=== PATIENT | male | born 1945 | race Caucasian/White ===

== ENCOUNTER 2019-01-16 20:52 | Inpatient (IN) | payer OTHER, MEDICAID ==
[~2019-01-16] VITALS: Ht 180.3 cm; Wt 74.4 kg
[2019-01-16 21:00] VITALS: Ht 180.3 cm; Wt 74.4 kg
--- NOTE | 2019-01-16 21:20 | NUR ---
PT BIBA TO BED 12 VIA [facility]. PER MEDIC PT WAS FOUND BY ON THE FLOOR OR HIS HOUSE AND FRIENDS CALLED 911. PT AAOX4, WITH INTERMITTEN CONFUSION. PT APPEARS DIRTY, WITH NO SHOES OR SHIRT. PT DENIES BEING HOMELESS AND REPORTS LIVING AT THE HOUSE FROM WHERE HE WAS PICKED UP BY AMBULENCE. 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 PT REPORTS HE HAS NOT HAD HIS METHADONE IN 2 DAYS. PT REPORTS ABD PAIN RATED 10/10. PT FOLLOWS APPEARS ANXIOUS AND RESTLESS AT THIS.
--- NOTE | 2019-01-16 21:35 | NUR ---
PT AMBULATED TO RESTROOM WITH STEADY GAIT.
[2019-01-16 22:12] LABS: ALKALINE PHOSPHATASE 112 U/L (46-116); ALT/SGPT 28 U/L (16-63); AMYLASE 40 U/L (25-115); AST/SGOT 29 U/L (15-37); BILIRUBIN TOTAL 0.29 mg/dL (0.20-1.00); CALCIUM 8.7 mg/dL (8.5-10.1); CARBON DIOXIDE 20.2 mmol/L (21-32); CHLORIDE SERUM 83 mmol/L (98-107); CREATININE SERUM 0.8 mg/dL (0.7-1.3); GLUCOSE SERUM 80 mg/dL (74-106); LIPASE 67 IU/L (73-393); POTASSIUM SERUM 4.1 mmol/L (3.5-5.1); TOTAL PROTEIN, SERUM 6.9 g/dL (6.4-8.2)
[2019-01-16 22:13] LABS: ALBUMIN 2.7 g/dL (3.4-5.0)
[2019-01-16 22:14] LABS: SODIUM SERUM 115 mmol/L (136-145)
--- NOTE | 2019-01-16 22:22 | NUR ---
PATIENT REQUESTING FOOD. PROVIDED PATIENT WITH SANDWICH OKAY PER DR THORNTON. PRIMARY RN MADE AWARE.
--- NOTE | 2019-01-16 22:40 | NUR ---
PT ATTEMPTED TO WALK OUT OF ED, PT STATES "IM GETTING OUT OF HERE, IF YOU GUYS ARENT GIVING ME MY METHADONE." PT ENCOURAGED TO GO BACK TO ROOM AND REFUSED. DR THORNTON AT SIDE EXPLAINED TO PT NEED FOR NS BOLUS FOR CRITICALLY LOW NA. PT ASSISTED X 4 TO BED 11. HELENA THORNTON ORDERED HALDOL AND BENEDRYL IM AND 4 POINT RESTRAINTS.
--- NOTE | 2019-01-16 22:58 | NUR ---
RECIEVED REPORT FROM YAYA GUZMÁN. PT LAYING IN POSITION OF COMFORT. PT CONFUSED, FOLLOWING COMMANDS. SONYA GUZMÁN AT BEDSIDE FOR IV START
--- NOTE | 2019-01-16 23:07 | NUR ---
ATTEMPTED IV ACCESS X3 TO RIGHT UPPER EXTREMITY, UNSUCCESSFUL, PT TOLERATED.
[2019-01-16 23:30] LABS: BASOPHIL % 0.6 % (0-2); PLATELET COUNT 412 x10^3mcL (130-400); RED CELL DISTRIBUTION WIDTH 15.1 % (11.5-14.5)
--- NOTE | 2019-01-17 00:06 | NUR ---
X-RAY AT BEDSIDE
--- NOTE | 2019-01-17 00:19 | NUR ---
PT WILL NOT RESPOND TO QUESTIONS TO OBTAIN MED REC OR BELONGINGS LIST. PT STATED IN TRIAGE THAT HE TOOK METHADONE, BUT NO OTHER MEDS.
--- NOTE | 2019-01-17 00:46 | NUR ---
PT FOUND URINATING IN SINK. IV PULLED OUT FROM BEING STRETCHED. PT PUT BACK IN BED AND GIVEN A URINAL.
--- NOTE | 2019-01-17 01:00 | NUR ---
WINDY RN AND ROBYN RN AT BEDSIDE TO ATTEMPT IV PLACEMENT
--- NOTE | 2019-01-17 01:30 | NUR ---
MEDICATION ADMINISTERED PER MD ORDER. 500ML OF 3% NS STARTED AT 50ML/HR. MED AND RATE DOUBLE-CHECKED BY MARY GUZMÁN
--- NOTE | 2019-01-17 01:31 | NUR ---
PT LAYING IN BED RESTING. PT AROUSED, TRACKS W/ EYES. LAYING IN POSITION OF COMFORT. 2 BED RAILS UP, BED IN LOW AND LOCKED POSITION. VSS, RESPS E/U, NAD NOTED. MARY AT BEDSIDE TO ATTEMPT 2ND IV.
--- NOTE | 2019-01-17 01:57 | NUR ---
REPORT GIVEN TO RITA GUZMÁN
--- NOTE | 2019-01-17 02:30 | NUR ---
RECIEVED PT FROM ED ON RICKI ACCOMPANIED BY NURSE, PT SLEEPING DIFFICULT TO AROUSE BUT AROUSABLE TO TACTILE STIMULI UNABLE TO OBTAIN PT HISTORY DO TO ALOC, PT HAS IVS TO THE RIGHT HAND AND LFA INFUSING 3% SALINE AND THIAMINE SOLUTION, PT NOT REPORTING ANY PAIN, PT STABLE, BED ALARM ON, SAFETY PRECAUTIONS IN PLACE, WILL CONTINUE TO MONITOR
[2019-01-17 02:44] VITALS: BP 158/96
[2019-01-17 03:13] LABS: PHOSPHOROUS 3.4 mg/dL (2.5-4.9)
--- NOTE | 2019-01-17 03:35 | NUR ---
NO BANANNA BAG AVAILABLE, CALLED PHARM SAID THEY WOULD BRING IN 30 MIN
[2019-01-17 04:03] LABS: microscopic required? NO
[2019-01-17 04:16] LABS: UA SPECIFIC GRAVITY <=1.005 (1.005-1.035); urine erythrocyte NEGATIVE (NEGATIVE)
[2019-01-17 04:29] LABS: AMPHETAMINE QUAL UR NONE DETECTED (See below)
--- NOTE | 2019-01-17 04:57 | NUR ---
PT SLEEPING IN BED WITH NO ACUTE DISTRESS AT THIS TIME, PT AROUSABLE TO TACTILE STIMULI, BED ALARM ON, SAFETY PRECAUTIONS IN PLACE, WILL CONTINUE MONITOR
--- NOTE | 2019-01-17 05:23 | NUR ---
PT HAS BEEN SLEEPING AND ONLY AROUSABLE TO TACTILE STIMULI, WAS NOT ABLE TO GET PATIENT HISTORY DUR TO PTS ALOC, PT HAS HAD NO ACUTE DISTRESS NOTED SINCE ADMISSION, BED ALARM HAS REMAINED ON AND WIIL CONTINUE TO MONITOR AND ENDORSE CARE TO ONCOMING RN
[2019-01-17 05:32] VITALS: BP 149/85
[2019-01-17 06:23] LABS: BASOPHIL % 0.4 % (0-2); PLATELET COUNT 378 x10^3mcL (130-400)
[2019-01-17 06:29] LABS: CALCIUM 8.4 mg/dL (8.5-10.1); CARBON DIOXIDE 28.3 mmol/L (21-32); CHLORIDE SERUM 98 mmol/L (98-107); CREATININE SERUM 0.7 mg/dL (0.7-1.3); GLUCOSE SERUM 84 mg/dL (74-106); POTASSIUM SERUM 4.6 mmol/L (3.5-5.1); SODIUM SERUM 132 mmol/L (136-145)
[2019-01-17 06:35] LABS: T3 TOTAL 0.95 ng/mL
[2019-01-17 06:36] LABS: RED CELL DISTRIBUTION WIDTH 15.3 % (11.5-14.5)
[2019-01-17 06:57] LABS: FREE T4 0.99 ng/dL (0.76-1.46)
--- NOTE | 2019-01-17 07:40 | NUR ---
PT IS AAOX2-[address], GROGGY, SLOW TO SPEAK. FOLLOWS COMMANDS. VERBALLY RESPONSIVE. TELE [address] READING NSR WITH PVCS. NO C/O CHEST PAIN, PRESSURE OR PALPITATIONS. LUNG SOUNDS CONGESTED BILATERALLY WITH NON PRODUCTIVE COUGH NOTED. ON 02 N/C AT 3LPM. ABDOMEN SOFT, NONTENDER, NONDISTENDED. BOWEL SOUNDS ACTIVE. DENIES N/V. SKIN IN ESAU RED WITH DRYNESS TO BLE. PT HAS SCATTERED SCABS ON RLE, SAMANTHA. NO S/S OF INFECTION NOTED. PT HAS SCAB TO L MEDIAL FOOT, SAMANTHA, NO S/S OF INFECTION NOTED. DENIES PAIN AT THIS TIME. FALL PROTOCOL IN PLACE. CALL LIGHT WITHIN REACH. BED ALARM ON.
--- NOTE | 2019-01-17 09:19 | NUR ---
DUE MEDS GIVEN. FLUIDS ENCOURAGED. PT ORIENTED TO CALL LIGHT. RESP EVEN WITH NON PRODUCTIVE COUGH. DENIES PAIN. CALL LIGHT WITHIN REACH.
--- NOTE | 2019-01-17 09:39 | NUR ---
ATIVAN 2MG GIVEN FOR AGITATION. PT'S B/P 186/78 (108), HR 94. REPORTED TO DR. MCCARTHY. NO NEW ORDERS AT THIS TIME. CALL LIGHT WITHIN REACH.
[2019-01-17 10:12] VITALS: BP 186/78
--- NOTE | 2019-01-17 11:00 | NUR ---
PT IS SITTING UP AT BEDSIDE EATTING BREAKFAST. PT IS SWAYING SITTING AT EDGE OF BED. PT NOTED WITH FINE TREMORS TO R HAND/ARM. PT ASSISTED BACK INTO BED. B/P 144/80, (101), POST ATIVAN 2MG. CALL LIGHT WITHIN REACH. WILL CONTINUE TO MONITOR.
[2019-01-17 13:37] VITALS: BP 165/77
--- NOTE | 2019-01-17 14:25 | NUR ---
ATIVAN 2 MG IVP GIVEN. PT IS ANXIOUS. B/ (108), HR 77. PT DENIES H/A OR DIZZINESS. CALL LIGHT WITHIN REACH.
[2019-01-17 16:21] LABS: CALCIUM 8.6 mg/dL (8.5-10.1); CARBON DIOXIDE 26.6 mmol/L (21-32); CHLORIDE SERUM 102 mmol/L (98-107); CREATININE SERUM 0.8 mg/dL (0.7-1.3); GLUCOSE SERUM 110 mg/dL (74-106); POTASSIUM SERUM 4.3 mmol/L (3.5-5.1); SODIUM SERUM 135 mmol/L (136-145)
[2019-01-17 16:43] VITALS: BP 180/81
--- NOTE | 2019-01-17 17:04 | NUR ---
REPORTED TO DR. MCCARTHY THAT PT HAS CONGESTION AND CHRONIC NONPRODUCTIVE COUGH. COULD PT HAVE ORDER FOR SEIZURE PRECAUTIONS. DR. MCCARTHY STATED YES PLEASE ORDER SEIZURE PRECAUTIONS, I WILL COME AND TAKE A LOOK AT THE PT. ORDERS NOTED PT MADE AWARE.
--- NOTE | 2019-01-17 17:11 | NUR ---
ATIVAN 2 MG IVP GIVEN. PT IS ANXIOUS. B/ (108), HR 77. PT DENIES H/A OR DIZZINESS. CALL LIGHT WITHIN REACH.
--- NOTE | 2019-01-17 18:38 | NUR ---
HYDRALZINE 10MG IVP GIVEN FOR B/P 175/77 (111). LASIX 20 MG IVP GIVEN FOR CHEST CONGESTION. RESP EVEN, SHALLOW. NO RESP DISTRESS NOTED. CALL LIGHT WITHIN REACH.
--- NOTE | 2019-01-17 18:41 | NUR ---
PT IS AAOX2 TO PERSON AND PLACE. DROWSY, FOLLOWS SOME COMMANDS. SEIZURE PRECAUTIONS IMPLEMENTED. TELE [address] READING NSR WITH PVCS. PT ON O2 N/C AT 3LPM. IV CATH TO RH N/S LOCKED. SITE WNL. IV CATH TO LFA WITH FLUIDS RUNNING. SITE WNL. SO S/S OF INFECTION NOTED. PT DENIES PAIN AT THIS TIME. WILL ENDORSE ALL CARE TO NOC RN.
[2019-01-17 19:20] VITALS: BP 114/50
--- NOTE | 2019-01-17 19:25 | NUR ---
RECEIVED PT VERY DROWSY WITH ATTEMPTS OF GETTING OOB AT THIS TIME.REDIRECTED BACK IN BED AND REPOSITIONED.CHANGED ALL LINENS AND GOWNS.BP 114/50 MMHG,HR 98.PADDED RAILS IN PLACED.ON SEIZURE PRECAUTION.BEDALARM ON AT ALL TIMES.WILL CONTINUE TO MONITOR.
--- NOTE | 2019-01-18 04:35 | NUR ---
PT WITH ON AND OFF SLEEPING PATTERN,MORE AWAKE AND ABLE TO MAKE NEEDS KNOWN.ON LIBRIUM PO Q8H.ATIVAN 2 MG IVP X3 GIVEN FOR WITHDRAWAL SYMPTOMS.PERIODS OF RESTLESSNESS WANTING TO GO OUTSIDE HOSPITAL.REDIRECTED BEHAVIOR.BEDALARM ON AT ALL TIMES.PADDED RAILS IN PLACED.SEIZURE PRECAUTIONS OBSERVED.ALL NEEDS MET.WILL CONTINUE TO MONITOR.
[2019-01-18 05:51] VITALS: BP 148/88
[2019-01-18 06:27] LABS: BASOPHIL % 0.3 % (0-2); PLATELET COUNT 307 x10^3mcL (130-400)
[2019-01-18 06:42] LABS: ALKALINE PHOSPHATASE 94 U/L (46-116); ALT/SGPT 33 U/L (16-63); AST/SGOT 21 U/L (15-37); BILIRUBIN TOTAL 0.3 mg/dL (0.20-1.00); CALCIUM 8.6 mg/dL (8.5-10.1); CARBON DIOXIDE 26.6 mmol/L (21-32); CHLORIDE SERUM 100 mmol/L (98-107); CREATININE SERUM 0.8 mg/dL (0.7-1.3); GLUCOSE SERUM 98 mg/dL (74-106); MAGNESIUM 2.1 mg/dL (1.8-2.4); PHOSPHOROUS 3.7 mg/dL (2.5-4.9); SODIUM SERUM 133 mmol/L (136-145)
[2019-01-18 06:51] LABS: ALBUMIN 2.3 g/dL (3.4-5.0); TOTAL PROTEIN, SERUM 5.6 g/dL (6.4-8.2)
[2019-01-18 06:59] LABS: RED CELL DISTRIBUTION WIDTH 15.3 % (11.5-14.5)
--- NOTE | 2019-01-18 07:17 | NUR ---
RECEIVED PATIENT SLEEPY, AROUSABLE, DROWSY NOTED. 3LNC NOTED. TELE #30 NOTED. IV TO RH INTACT AND SL NOTED, LFA INTACT AND INFUSING WELL. BED ALARM ACTIVATED, CALL LIGHT WITHIN REACH.
--- NOTE | 2019-01-18 08:17 | NUR ---
PATIENT GOT UP PER OBSTETRICIAN GYNECOLOGIST AT BEDSIDE REPORT, URINATING ON THE FLOOR AND PULL OUT IV TO LFA; NOTED SITE IS BLEEDING GAUZES APPLIED. PATIENT REMOVED GOWN AND TELE BOX; OBSTETRICIAN GYNECOLOGIST ASSISTING PATIENT WITH HIS GOWN AND TELE BOX PLACE BY RN; INSTRUCT PATIENT TO KEEP THE GOWN ON. ASSISTING UP TO CHAIR W/ UNBALANCE GAIT NOTED. OBSTETRICIAN GYNECOLOGIST CHANGE LINENS.
[2019-01-18 08:43] VITALS: BP 166/75
--- NOTE | 2019-01-18 08:55 | NUR ---
PATIENT REMAIN UP IN CHAIR, SPEAKING WITH SLURRED SPEECH. GAVE ALL PO MEDS PATIENT TOOK ALL WITHOUT DIFFICULTY. PATIENT ASKING NURSE FOR METHADONE INFORM PATIENT WILL ASK DOCTOR. NO ORDER AT THIS TIME. PER PATIENT TAKE METHADONE 90MG PO DAILY. CONT TO MONITOR.
--- NOTE | 2019-01-18 09:33 | NUR ---
PATIENT GOT OUT OFF BED WALKING IN HALLWAY TRY TO GET OUT, FOOD AND BEVERAGE COORDINATOR AND LICENSED PSYCHOLOGIST DIRECTOR TRY TO WALK PATIENT BACK TO BED. PATIENT WALK W/ UNBALANCE GAIT. ASSIST IN BED. ATIVAN 2MG IVP GIVEN TO RH IV PATENT. BED ALARM IN PLACE, SIDE RAILS UP. CONT TO MONITOR.
--- NOTE | 2019-01-18 10:27 | NUR ---
REPORT COMPUTER SCIENCE INSTRUCTOR FAHAD PATIENT TRY TO LEFT THE FLOOR, ATIVAN IS NOT EFFECTIVE. PATIENT STATE "I NEED MY METHADONE." PER FAHAD COMPUTER SCIENCE INSTRUCTOR WILL ORDER METHADONE FOR PATIENT. PATIENT IS SITTING UP IN CHAIR REFUSED TO GO TO BED. CALL LIGHT WITHIN REACH, TEACH IS NOT EFFECTIVE. INSTRUCT TO USE CALL LIGHT NO INDICATE OF LEARNING AT THIS TIME.
--- NOTE | 2019-01-18 10:55 | NUR ---
PER BUNNY CARMEN SPOKE TO FAHAD AMPHIBIOUS OPERATIONS OFFICER PATIENT'S REFUSED TO BE IN HIS ROOM, AMPHIBIOUS OPERATIONS OFFICER WILL ORDER HALDOL. HOUSE SUP AWARE PATIENT KEEP WANT TO LEAVE THE HOSPITAL, GAIT UNSTEADY AND UNSAFE TO LEAVE. WILL HAVE SITTER.
--- NOTE | 2019-01-18 11:09 | NUR ---
PATIENT AGITATED WHEN TRY TO GET PATIENT BACK TO BED BY TWO ENTERPRISE RESOURCE PLANNING CONSULTANT, HALDOL 5MG IM GIVEN TO LT ARM, ENTERPRISE RESOURCE PLANNING CONSULTANT AT BEDSIDE TO MONITOR PATIENT. PLACE TELE BOX #30 ON PATIENT. CALL LIGHT WITHIN REACH.
--- NOTE | 2019-01-18 12:10 | NUR ---
PATIENT GETTING MORE AGITATED AFTER HALDOL GIVEN AT 1103, PLACE PATIENT ON BILATERAL SOFT WRIST RESTRAINT, MORTGAGE CLOSING CLERK FAHAD WAS INFORM. ATIVAN 2MG IVP GIVEN TO RH IV PATENT. PATIENT STILL TRYING TO GET HIS RESTRAAINST OFF. SITTER AT BEDSIDE CONT TO MONITOR.
--- NOTE | 2019-01-18 14:16 | NUR ---
PHYSICAL THERAPY NOTE ATTEMPTED PHYSICAL THERAPY EVAL, PATIENT COULD NOT PARTICIPATE ON FUNCTIONAL MOBILITY, PATIENT IS ONCOOPERATIVE. TO BE ATTEMPTED NEXT SESSION.
--- NOTE | 2019-01-18 14:44 | NUR ---
MILK AND CREAM GRADER ASSISTING PATIENT WITH LUNCH AND PATIENT GET AGITATED, WANT TO REMOVED RESTRAINT AND GOT IRRITIATED, ATIVAN 2MG IVP GIVEN TO RH IV PATENT. INCONT OF URINE SKIP CARE WILL BE PROVIDED WHEN PATIENT REMAIN CALM. CONT TO MONITOR.
[2019-01-18 16:30] VITALS: BP 189/115
--- NOTE | 2019-01-18 17:17 | NUR ---
RESTART NEW IV TO #22G BY JIM RN, RH IV INFILTRATED PATIENT C/O PAINFUL WHEN FLUSH. REMOVED W/ CATHETER INTACT GAUZES APPLIED. BILAT SOFT REST RESTRAIN IN PLACE AND CIRCULATION WNL. SITTER REMAIN AT BEDSIDE. CALL LIGHT WITHIN REACH.
--- NOTE | 2019-01-18 18:56 | NUR ---
PATIENT SLEEPING AT THIS TIME, NO DISTRESS NOTED. SITTER REMAIN AT BEDSIDE. BILAT SOFT WRIST RESTRAINT IN PLACE AND SECURED. CALL LIGHT WITHIN REACH.
--- NOTE | 2019-01-18 19:30 | NUR ---
REC'D PT FROM DAY NURSE. PT RESTING IN BED. AAOX2-3. ORIENTED TO SELF, MONTH, AND CITY. DROWSY. REORIENTED TO YEAR AND PLACE. WHISPERED SPEECH. SLIGHTLY GARBLED BUT EASY TO UNDERSTANDING. SZ PREC IN PLACE. TELE 30, ST WITH PVCS. DENIES CP, DIZZINESS, OR PALPITATIONS. BREATHING EVEN/UNLABORED ON 3L NC, SPO2 98%. REDUCED O2 TO 1.5 L, SPO2 97%. NO EDEMA NOTED. ABD SOFT/ROUND. NO GRIMACE WITH PALPATION. VOIDING WITH INCONTINENCE. DRY ABRASIONS/SCABS TO RLE BUILDING MAINTENANCE SUPERINTENDENT. GEN WEAKNESS. KONRAD SOFT WRIST RESTRAINTS IN PLACE. PT ATTEMPTING TO GET OOB AND REMOVE IV. IV TO LH PATENT AND INFUSING, SITE WNL. CALL LIGHT WITHIN REACH, BED AT LOWEST POSITION, BED ALARM ON, SITTER AT BEDSIDE. WILL CONTINUE TO MONITOR.
[2019-01-18 21:21] VITALS: BP 174/94
--- NOTE | 2019-01-18 21:36 | NUR ---
BP 171/94, MAP 113, HR 91. HYDRALIZE IVP GIVEN.
--- NOTE | 2019-01-18 22:13 | NUR ---
PT CHANGED AND CLEANED. NONBLANCHABLE ERYTHEMA NOTED TO L BUTTOCKS, A LITTLE BIT ON COCCYX, AND R BUTTOCK. PICTURE OBTAINED. Z GUARD APPLIED. KONRAD SOFT WRIST RESTRAINTS IN PLACE. SITTER AT BEDSIDE. WILL CONTINUE TO MONITOR.
[2019-01-18 22:55] VITALS: BP 180/106
--- NOTE | 2019-01-18 23:03 | NUR ---
BP 180/106, MAP 130, HR 115. STILL ELEVATED S/P HYDRALIZINE IVP. SPOKE TO DR. SULLIVAN AND MADE AWARE. STATED WILL ORDER SOMETHING. PT RESTLESS AND TRYING TO GET OOB. KONRAD SOFT WRIST RESTRAINTS IN PLACE. KICKING. ATIVAN 2MG IVP GIVEN PER ORDER. SITTER AT BEDSIDE. WILL CONTINUE TO MONITOR.
[2019-01-19] VITALS (7 sets, daily range): BP systolic 107–182; BP diastolic 68–102
--- NOTE | 2019-01-19 00:34 | NUR ---
BP 194/105, MAP 154, HR 104 S/P LOPRESSOR 2.[address] SULLIVAN AND MADE AWARE.
--- NOTE | 2019-01-19 01:36 | NUR ---
BP 176/102, HR 94 S/P CLONIDINE 0.[address] PO[address] SPOKE TO DR. SULLIVAN AND MADE AWARE. STATED TO JUST MONITOR FOR NOW. NO CHANGES IN ORDERS. PT RESTING IN BED WITH EYES CLOSED. OCCASIONALLY RESTLESS. BREATHING EVEN/UNLABORED ON 1.5 L NC. KONRAD SOFT WRIST RESTRAINTS IN PLACE. SITTER AT BEDSIDE. WILL CONTINUE TO MONITOR.
--- NOTE | 2019-01-19 03:01 | NUR ---
PT RESTING IN BED WITH EYES CLOSED. APPEARS TO BE SLEEPING. NO SIGNS OF DISTRESS NOTED. BREATHING EVEN/UNLABORED ON 1.5L O2 VIA NC. KONRAD SOFT WRIST RESTRAINTS IN PLACE. CALL LIGHT WITHIN REACH, BED AT LOWEST POSITION, SITTER AT BEDSIDE. WILL CONTINUE TO MONITOR.
[2019-01-19 06:11] LABS: BASOPHIL % 0.2 % (0-2); PLATELET COUNT 321 x10^3mcL (130-400)
--- NOTE | 2019-01-19 06:19 | NUR ---
PT RESTING IN BED WITH EYES CLOSED. AROUSES SPONTANEOUSLY. SPEECH GARBLED BUT EASY TO UNDERSTANDING. DROWSY BUT RESTLESS AT TIMES AND KICKS. BP 138/91, HR 86. KONRAD SOFT WRIST RESTRAINTS IN PLACE. CALL LIGHT WITHIN REACH, BED AT LOWEST POSITON, SITTER AT BEDSIDE. WILL ENDORSE TO DAY NURSE.
[2019-01-19 06:42] LABS: CALCIUM 9.2 mg/dL (8.5-10.1); CARBON DIOXIDE 26.8 mmol/L (21-32); CHLORIDE SERUM 99 mmol/L (98-107); CREATININE SERUM 0.7 mg/dL (0.7-1.3); GLUCOSE SERUM 98 mg/dL (74-106); POTASSIUM SERUM 3.7 mmol/L (3.5-5.1); SODIUM SERUM 134 mmol/L (136-145)
[2019-01-19 06:45] LABS: RED CELL DISTRIBUTION WIDTH 15.4 % (11.5-14.5)
--- NOTE | 2019-01-19 08:00 | NUR ---
PATIENT RECEIVED WITH ONE TO ONE SITTER AT [facility] AND RESTRAINTS IN PLACE. PATIENT HAS BEEN ASKING IN A GARBLED SPEECH FOR METHODONE AND REPORTED THE PATIENT HAD NOT BEEN ON THIS MEDICATION FOR AT LEAST 4 YEARS, PATIENT HAS BEEN ANXIOUS AND ON LIBRIUM AND PATIENT HAS BEEN ON SEIZURE PRECAUTIONS FOR HYPONATREMIA AND THE NA 134 AT THIS TIME . PATIENT HAS BEEN NOTED TO HAVE LOW ALBUMIN WELL AND PATIENT HAS HX OF BEING HOMELESS AND FOUND ON THE GROUND . PATIEN THAS GENERAL WEAKNESS AND HAS BEEN NOTED TO PULL AT THE IV AND THE TELE MONITOR AND HAS AT TIME BEEN COMBATIVE PER REPORT. PATIENT HAS HX OF HEROIN USE ADN ETOH. NO KNOWN ALLERGIES AND PATIENT HAS BEEN NEGATIVE FOR HERION OR ANY OTHER DRUGS AND IS POSTIVE ON ADMISSION FOR ALCOHOL AND PLACED ON ETOH PROTOCAL INDICATED. PATIENT IS TO BE SEEN BY A PSYCH AND VITALS AT THIS TIME AT 97.0, 86, 18, 138/71, 96%.
--- NOTE | 2019-01-19 11:32 | NUR ---
CONTINUED WITH SITTER AT BEDSID ADN RESTRAINTS. PATIENT IS STILL ANXIOUS AND CONFUSED BUT CALMER WITH THE LIBRIUM GIVEN. WILL CONTNDUE TO MONITOR. NO SEZIURE OR DT NOTED.
--- NOTE | 2019-01-19 11:46 | NUR ---
SEEN BY INSPECTOR PLUMBING AND ADVISED STAFF AT BEDSIDE TO CALL AND LET STAFF KNOW IF ANY COMES TO SEE THE PATIEN TAS WE NEED SOME KIND OF CONTACT. PATIENT HAS SO FAR BEEN CONFUSED AND ONLY ORIENTED TO SELF. HE IS SLURRING HIS WORDS AND SEEMS NOT TO BE ORIENTED TO THE PRESENT.
--- NOTE | 2019-01-19 16:20 | NUR ---
PATIENT DOES NOT APPEAR IN ANY PAIN AT THIS TIME. IV INTACT AND PATIENT WITH SITTER AT BEDSIDE. RESTRAINTS TO BILATERAL WRISTS NOTED AND CIRCULATION CHECKED. WILL CONTINUE TO MONITOR AND NO SEIZURE ACTIVITY NOTED.
--- NOTE | 2019-01-19 18:50 | NUR ---
FORREST HAD A BREAK FROM THE RESTRAINTS AND HE IS FEEDING HIMSELF. ZENY LMONITOR FOR ANY AGITATION OR PULLING OF ANY MEDICAL DEVICES. AT THIS TIME HE IS COOPERATIVE.
--- NOTE | 2019-01-19 19:20 | NUR ---
RECEIVED PT IN BED AND APPEARS DROWSY. HE ANSWERS TO SIMPLE QUESTIONS W/ GARBLED SPEECH. NO C/O HEADACHE AND DIZZINESS. LUNG SOUNDS DIMINISHED. NO SOB NOTED. HE HAS NO C/O PAIN AT THIS TIME. W/ BILAT SOFT WRIST RESTRAINTS IN PLACE. WILL MAINTAIN GOOD CIRCULATION WHILE ON RESTRAINTS. W/ IVF NS AT 100 CC/HR VIA LT HAND. CALL LIGHT W/IN REACH.
--- NOTE | 2019-01-19 20:30 | NUR ---
STARTED NEW IV ON THE LTFA ( IV TO LT HAND WAS OUT). PT TOLERATED PROCEDURE WELL.
[2019-01-20] VITALS (7 sets, daily range): BP systolic 147–191; BP diastolic 85–108
--- NOTE | 2019-01-20 00:32 | NUR ---
PT TRYING TO REMOVE RESTRAINTS WANTS TO GET OOB REPEATEDLY. PT REORIENTED BUT UNSUCCESSFUL. ATIVAN 2 MG IV GIVEN TO HELP PT CALM DOWN.
--- NOTE | 2019-01-20 01:15 | NUR ---
PT STILL AWAKE BUT APPEARS MORE CALM AFTER ATIVAN WAS GIVEN.
--- NOTE | 2019-01-20 05:17 | NUR ---
PT AWAKE MOST OF THE NIGHT. HE REMAINS CONFUSED AND W/GARBLED SPEECH. HE WAS MEDICATED W/ ATIVAN X1FOR AGITATION. PT TRYING TO REMOVE RESTRAINTS AND TO GET OOB. PT REORIENTED REPEATEDLY. GOOD CIRCULATION MAINTAINED. PT HAD BM X1. HE HAD NO C/O PAIN. ALL NEEDS ATTENDED TO. SITTER AT BEDSIDE.
[2019-01-20 06:21] LABS: BASOPHIL % 0.2 % (0-2); PLATELET COUNT 285 x10^3mcL (130-400)
[2019-01-20 06:47] LABS: RED CELL DISTRIBUTION WIDTH 15.4 % (11.5-14.5)
[2019-01-20 06:55] LABS: CALCIUM 9.4 mg/dL (8.5-10.1); CARBON DIOXIDE 24.3 mmol/L (21-32); CHLORIDE SERUM 101 mmol/L (98-107); CREATININE SERUM 0.8 mg/dL (0.7-1.3); GLUCOSE SERUM 107 mg/dL (74-106); POTASSIUM SERUM 3.8 mmol/L (3.5-5.1); SODIUM SERUM 134 mmol/L (136-145)
--- NOTE | 2019-01-20 08:00 | NUR ---
PATIENT HAS BEEN SEEN BY THE [facility] AND CONTINUED ON RESTRAINT PROTOCAL DUE TO PULLING OUT OF IV AND HAS BEEN CONFUSED INTERMITTANTLY THOUGHOUT THE NIGHT. HE RECEIVED ATIVAN FOR HIS RESTLESSNESS AND AGITATION. PATIENT HAD NO SIGNS OF SEIZURE ACTIVITY AND ON PROTOCAL INDICATED. PATIENT HAS BEEN NOTED TO HAVE SOME SCABS AND ABRASIONS TO THE EXTREMTIES AND WAS FOUND ON THE PAVEMENT AND BROUGHT TO THE HOSPITAL AND HE WAS UNRESPONSIVE. PATIENT HAS NOTED. LABS OF THE NA AT 134, PROTTIEN AT 5.6, ALBUMIN AT 2.3 AND THE ALBUMIN AND GLOBULINE AT 0.7. THE CHEST XRAY SHO0WS CARDIOMEGALY AND WITH SOME AORTIC CALCIFICATIONS. HX OF HEROIN ABUSE ADN ETOH ABUSE. WILL CONTINUE TO MONITOR AND NOTED THE PATIENT WITH ELVATED BP AND GAVE HYDROLIZINE ORDERED. WILL MONITOR FOR EFFECTIVENESS.
--- NOTE | 2019-01-20 09:21 | NUR ---
CONTINUES TO REQUEST COFFEE BUT ADVISED THAT THIS IS CONTRAINDICATED DUE TO ELEVATE DBP AND PLUSE. WILL CONTINUE TO MONTIR NOW FO RTHE NORMALIZING OF THE BP.
--- NOTE | 2019-01-20 10:08 | NUR ---
PATIENT GIVEN ATIVAN FOR AGITATION INDICATED. HE HAS BEEN UPSET HE CANT HAVE THE COFFEE HE REQUESTED AND STATES WE CANT KEEP HIM HERE HE IS OK NOW. PATIENT HAS STILL WITH SLURRING SPEECH. PATIENT HAS BEEN WITH CONTINUED RESTRAINTS AND STILL ATTEMPTING TO GET UP ALTHOUGH VERY CONFUSED AND UNSTEADY.
--- NOTE | 2019-01-20 12:01 | NUR ---
GAVE ANOTHER DOSING OF ATIVAN PATIENT IS HIGHLY AGITATED AND BILIGERANT AT THIS TIME. WILL MONITOR FOR EFFECTIVENESS OF THE MEDICATION.
--- NOTE | 2019-01-20 17:01 | NUR ---
PATIENT TO GO TO [facility]. PATIENT HAS BEEN ON THE 02 VIA NASAL CANNUALA. GAVE DOSING OF LASIX AND SEEMS TO BE EFFECTIVE IN RELEAVING THE CONGESTION AND SOB. PATIENT FOR TRANSFER TOE [facility] TODAY. WILL AWAIT ORDERS FOR [facility] IN THE MEANTIME.
--- NOTE | 2019-01-20 17:05 | NUR ---
PATIENT HAS URINATING ALOT SINCE THE LASIX AND HAD NO BM YET.WILL CALL IN REPORT INDICATED TO THE STAFF AT [facility]. SHE IS TO BE IN ROOM 130 BED B FOR CONTINUE DIV ANTIBIOTICS AND REHAB. SPOKE THE CREW CALLER FOR [place] AND THE ARRANGEMENTS ARE BEING MADE.
--- NOTE | 2019-01-20 18:45 | NUR ---
CALLED MIRROR INSTALLER WHEN NOTE DTHE BP IS REMAINING ELEVATED AND THE HYDROLIZINE IS MINIMALLY EFFECTIVE. STAFF SUGGEST MAYBE MORE OF A MAINTENANCE DOSING FO RHTE HYPERTENSION AND THE HYDROLIZINE FOR A PRN. ALSO NEEDED OF PUREE AND SWALLOW EVAL.
--- NOTE | 2019-01-20 19:04 | NUR ---
RECEIVED ORDERS NOW BUT THE TIME IS SET MUCH EARLIER THAN THE REQUEST. ZENY ENDORSE TO THE NEXT SHIFT.
--- NOTE | 2019-01-20 19:10 | NUR ---
REPORT RECEIVED FROM DAY SHIFT RN. PATIENT WAS SEEN AND IS RESTING COMFORTABLY IN BED. SITTER AT BEDSIDE. SOFT WRIST RESTRAINTS NOTED. CIRCULATION AND SKIN INTERGRITY WNL. NO DISTRESS NOTED. BREATHING EVEN ON 2LNC. NO C/O PAIN. IV TO THE LFA INFUSING WELL. PATENT AND INTACT. NO REDNESS OR SWELLING NOTED. SEIZURE PRECAUTIONS IN PLACE AND MAINTAINED. COMFORT AND SAFETY MEASURES MAINTAINED. BED IS LOCKED AND IN THE LOWEST POSITION. SIDE RAILS UP X2. CALL LIGHT IS WITHIN REACH. WILL CONTINUE TO MONITOR.
--- NOTE | 2019-01-20 21:31 | NUR ---
BP STILL HIGH AFTER LISINOPRIL AND NORVASC. BP 168/102, HR 118. PRN CLONIDINE WAS ADMINISTERED PRESCRIBED. WILL CONTINUE TO MONITOR AND REASSESS BP. CIRCULATION AND SKIN INTEGRITY WNL. PATIENT IS DROSWY BUT AROUSABLE. FOLLOWS COMMANDS. SITTER AY BEDSIDE. CALL LIGHT IS WITHIN REACH.
--- NOTE | 2019-01-20 22:07 | NUR ---
PATIENT SOUNDS CONGESTED. ATTEMPTED TO SUCTION PATIENT. NO SPUTUM NOTED. ELEVATED HOB. PATIENT ATTEMPTS TO COUGH NOT SPUTUM NOTED. DR SULLIVAN MADE AWARE. RECOMMENDED RT PROTOCOL. SHE SAID SHE WILL PLACE ORDERS. WILL CONTINUE TO MONITOR PATIENT. NO DISTRESS NOTED. ON 2L NC. SATING WELL.
--- NOTE | 2019-01-20 22:11 | NUR ---
SITTER REPORTED THAT PATIENT SPIT UP SMALL WHITE FLUID. CONGESTION IMPROVED. WILL CONTINIUE TO MONITOR.
[2019-01-21 00:30] VITALS: BP 162/93
--- NOTE | 2019-01-21 00:46 | NUR ---
BP 162/93. LIBRIUM GIVEN PER EMAR. PATIENT WAS COOPERATIVE. SITTER AT BEDSIDE. PATIENT EASILY AROUSABLE. NO DISTRESS NOTED. ON 1L NC. PATIENT DID RECEIVE BREATHING TREATMENT EARLIER. SAFETY MEASURES IN PLACE. CIRCULATION AND SKIN INTERGRITY WNL. CALL LIGHT IS WITHIN REACH. WILL CONTINUE TO MONITOR.
--- NOTE | 2019-01-21 02:45 | NUR ---
PATIENT IS RESTING IN BED WITH EYES CLOSED. BREATHING EVEN ON 1L NC. IMPROVED FROM BEFORE. NO DISTRESS NOTED. SOFT WRIST RESTRAINTS IN PLACE BILATERALLY. CIRCULATION AND SKIN INTEGRITY WNL. SITTER AT BEDSIDE. IV TO THE LFA INFUSING WELL. PATENT AND INTACT. NO REDNESS OR SWELLING NOTED. SEIZURE PRECAUTIONS IN PLACE. SAFETY MEASURES IN PLACE. NO S/S OF AGITATION NOTED. CALL LIGHT IS WITHIN REACH. WILL CONTINUE TO MONITOR.
[2019-01-21 05:20] VITALS: BP 153/87
--- NOTE | 2019-01-21 06:29 | NUR ---
PATIENT SLEPT IN LONG INTERVALS THROUGHOUT THE NIGHT. NO ACUTE CHANGES NOTED. PATIENT IS DROWSY BUT EASILY AROUSABLE. OBEYS COMMANDS AND IS COOPERATIVE WITH CARE. CIRCULATION AND SKIN INTEGRITY WNL. BILATERALLY SOFT WRIST RESTRAINTS NOTED. SITTER AT BEDSIDE. BREATHING EVEN ON 1L NC. NO SOB OR RESP DISTRESS NOTED. NO DISTRESS NOTED. NO SIGNS OF AGITATION THROUGHOUT THE NIGHT. NO S/S OF PAIN NOTED. SEIZURE PRECAUTIONS IN PLACE AND MAINTAINED. IV TO THE LFA INFUSING WELL. PATENT AND INTACT. NO REDNESS OR SWELLING NOTED. SAFETY AND COMFORT MEASURES MAINTAINED. CALL LIGHT IS WITHIN REACH. WILL CONTINUE TO MONITOR.
[2019-01-21 07:05] LABS: BASOPHIL % 0.3 % (0-2); PLATELET COUNT 297 x10^3mcL (130-400)
[2019-01-21 07:08] LABS: RED CELL DISTRIBUTION WIDTH 15.1 % (11.5-14.5)
--- NOTE | 2019-01-21 07:15 | NUR ---
REPORT RECEIVED. PATIENT SEEN IN BED AWAIKE WITH BILATERAL WRIST RESTRAINTS ON AND RELEASED FOR SKIN CARE. ORIENTED TO PLACE ONLY OTHERWISE CONFUSED. REORIENTED.SITTER AT BEDSIDE. HOB RAISED TO 50 DEGREES.
[2019-01-21 07:23] LABS: CALCIUM 9.5 mg/dL (8.5-10.1); CARBON DIOXIDE 20.7 mmol/L (21-32); CHLORIDE SERUM 103 mmol/L (98-107); CREATININE SERUM 0.7 mg/dL (0.7-1.3); GLUCOSE SERUM 100 mg/dL (74-106); MAGNESIUM 1.8 mg/dL (1.8-2.4); POTASSIUM SERUM 3.8 mmol/L (3.5-5.1); SODIUM SERUM 139 mmol/L (136-145)
--- NOTE | 2019-01-21 08:22 | NUR ---
SEEN AND EVALUATED BY TYPEWRITERS FUNCTIONAL TESTER ZOILA.
--- NOTE | 2019-01-21 10:00 | NUR ---
LASIX 40 IVP GIVEN ORDERED. TURNED AND REPOSITIONED.
[2019-01-21 10:18] VITALS: BP 137/78
--- NOTE | 2019-01-21 11:50 | NUR ---
DIURESING. CALM. RESTRAINTS REMOVED AT THIS TIME. REPOSITIONED.
--- NOTE | 2019-01-21 14:22 | NUR ---
DRINKING WATER TRIGGERS HIM TO COUGH. PLACED NPO TILL SWALLOW EVALUATION IS DONE. TURNED AND REPOSITIONED. REORIENTED.
--- NOTE | 2019-01-21 15:25 | NUR ---
PT WAS SEEN FOR DYSPHAGIA. PT WAS ABLE TO SAFELY SWALLOW PUREE DIET WITH HONEY THICK LIQUID. PT HAD COUGH FOR NECTAR THICK LIQUID AND DIFFICULTY WITH MS DIET. RECOMMENDATION PUREE DIET WITH HONEY THICK LIQUIED SMALL BITES AND SIPS ONLY UPRIGHT POSITION
--- NOTE | 2019-01-21 15:54 | NUR ---
SEEN AND SWALLOW EVALUATION COMPLETED BY SPEECH THERAPIST. NOW ON PUREE DIET AND REMAINS ON ASPIRATION PRECAUTIONS.
--- NOTE | 2019-01-21 16:10 | NUR ---
HR 118-128 SINUS TACH ON TELE. RT TREATMENT HELD. PATIENT NOT IN ANY DISTRESS. LIVER TRIMMER FAHAD MADE AWARE OF HR AND SPEECH EVAL.
[2019-01-21 16:44] VITALS: BP 142/83
--- NOTE | 2019-01-21 17:58 | NUR ---
HAVING DINNER. HEAD OF BED AT 50 DEGREES. TOLERATING PUREE DIET WITH HONEY THICK LIQUID.
--- NOTE | 2019-01-21 19:22 | NUR ---
SBAR GIVEN TO ARIELLE BOYCE. PATIENT NOT IN ANY DISTRESS.
--- NOTE | 2019-01-21 20:02 | NUR ---
PT RECIEVED AWAKE ALERT AND ORIENTED TO NAME PALCE AND AGE,HOB,IV INFUSING WELL TO THE LFA WITH THE SITE PATENT AND INTACT,SIDE RAILS UP AND PADDED,PT ON TELE MONITOR AND IN SINUS TACH WITH PVCS,NO CHEST PAIN REPORTED AT THIS TIME,IV INFUSING WELL WITH THE SITE PATENT AND INTACT,KEPT CLEAN AND DRTY TO TOUCH,BED IN THE LOW POSITION AND LOCKED,CALL LIGHT EASY REACHED AND WILL CONTINUE TO MONITOR.
--- NOTE | 2019-01-21 20:34 | NUR ---
PT WANT SOMETHING TO MOVE HIS BOWELS CALL TO DR SULLIVAN AND MADE HER AWARE OF THAT,WAITING FOR ANY ORDERS,WILL CONTINUE TO MONITOR.
--- NOTE | 2019-01-21 20:49 | NUR ---
PT REPEATING THE SAME NEEDS,WILL CONTINUE TO MONITOR.
--- NOTE | 2019-01-21 20:58 | NUR ---
NO ORDERS YET AND PATIENT KEEP ASKIMNG FOR SOMETHING TO MOVE HIS BOWELS,SO DR SULLIVAN WAS [place] AT THIS TIME,WILL CONTINUE TO MONITOR.
[2019-01-21 21:07] VITALS: BP 126/71
--- NOTE | 2019-01-21 21:42 | NUR ---
MIRALAX 17 G PO GIVEN ORDER,WILL CONTINUE TO MONITOR.
--- NOTE | 2019-01-21 23:17 | NUR ---
PT SLEEPING AT THIS TIME,WILL CONTINUE TO MONITOR.
--- NOTE | 2019-01-22 01:33 | NUR ---
PT RESTING AT HIS TIME,WILL CONTINUE TO MONITOR.
[2019-01-22 05:53] VITALS: BP 102/73
--- NOTE | 2019-01-22 06:29 | NUR ---
PT HAD A RESTING NIGHT V/S STABLE,KEPT CLEAN AND DRY TO TOUCH NO CHNAGE AT THIS TIME,WILL CONTINUE TO MONITOR.
[2019-01-22 06:32] LABS: CALCIUM 9.7 mg/dL (8.5-10.1); CARBON DIOXIDE 22.6 mmol/L (21-32); CHLORIDE SERUM 104 mmol/L (98-107); CREATININE SERUM 0.8 mg/dL (0.7-1.3); GLUCOSE SERUM 190 mg/dL (74-106); POTASSIUM SERUM 4.4 mmol/L (3.5-5.1); SODIUM SERUM 139 mmol/L (136-145)
[2019-01-22 06:52] LABS: PLATELET COUNT 241 x10^3mcL (130-400)
--- NOTE | 2019-01-22 07:16 | NUR ---
SBAR RECEIVED FROM ARIELLE BOYCE. PATIENT ASLEEP ON BEDSIDE ROUNDS. 2LPM O2 IN USE. NS AT 100 CC/HR INFUSING WELL. HOB AT 30 DEGREES. SITTER AT BEDSIDE.
[2019-01-22 07:26] LABS: BASOPHIL % 0 % (0-2); RED CELL DISTRIBUTION WIDTH 15.5 % (11.5-14.5)
--- NOTE | 2019-01-22 09:28 | NUR ---
ASSISTED UP IN A CHAIR FOR BREAKFAST. PATIENT SINGING TODAY.
--- NOTE | 2019-01-22 11:01 | NUR ---
ASSISTED BACK TO BED. RESTING AT THIS TIME. MORE CONVERSANT AT BREAKFAST TIME.
--- NOTE | 2019-01-22 11:40 | NUR ---
PATIENT SEEN WALKING DOWN THE HALLWAY. ORIENTEDX1. "I WANT TO SMOKE AND CALL MY SISTER". REFUSED TO GET BACK TO HIS ROOM. 30 MINUTES LATER HE AGREED AND ESCORTED BACK IN HIS ROOM VIA WHEELCHAIR. NOTED IV ACCESS WAS REMOVED BY PATIENT.
[2019-01-22 12:30] VITALS: BP 127/58
--- NOTE | 2019-01-22 12:54 | NUR ---
ATTEMPTED TO RESTART IV ACCESS 2X BUT UNSUCCESSFUL. " DO IT LATER" PATIENT STATED. WILL ATTEMPT AFTER LUNCH.
[2019-01-22] MEDS ORDERED: ROC1I IV (15:22)
[2019-01-22] MEDS ORDERED: ZITHROMAX500 MG IV (15:22)
[2019-01-22 15:23] VITALS: BP 127/58
[2019-01-22 16:18] VITALS: BP 139/79
--- NOTE | 2019-01-22 17:32 | NUR ---
FOR TRANSFER TO [facility] FOR CONTINUITY OF CARE. REPORT GIVEN TO ARIELLE GOMES IN [place]. PATIENT GOING BY BLS TRANSPORT AROUND 190
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
--- NOTE | 2019-01-22 19:06 | NUR ---
[facility] AT BEDSIDE TO HOSPITAL FOOD SERVICE WORKER THE PT. REPORT AND TRANSFER PACKET GIVEN TO [facility]. PT TRANSFERRED VIA STRETCHER TO [place]
--- NOTE | 2019-01-22 19:08 | NUR ---
REPORT GIVEN TO ARIELLE GREGORIO.
== END 2019-01-22 19:10 | DRG 917 ==
LOC: ED 20:52 → DU 23:57
PROVIDERS: Emergency Medicine; Internal Medicine; ADMIT Family Medicine
DX: T51.0X1A Toxic effect of ethanol, accidental (unintentional), initial encounter (principal); G92 Toxic encephalopathy; E43 Unspecified severe protein-calorie malnutrition; J69.0 Pneumonitis due to inhalation of food and vomit; E87.1 Hypo-osmolality and hyponatremia; F10.121 Alcohol abuse with intoxication delirium; F11.20 Opioid dependence, uncomplicated; T40.1X1A Poisoning by heroin, accidental (unintentional), initial encounter; Y90.4 Blood alcohol level of 80-99 mg/100 ml; Y92.018 Other place in single-family (private) house as the place of occurrence of the external cause
CPT/HCPCS: 83880; 84439; 92526-GN; 92610; 94150; G0378; G0480; J0360; J0456; J0696; J1200; J1630; J1940; J2060; J2405; J2765; J2920; J3411; J3490; J7030; J7613; J7620; J7644; Q0092; Q0162

== ENCOUNTER 2019-01-25 18:50 | Inpatient (IN) | payer OTHER, MEDICAID ==
[~2019-01-25] VITALS: Ht 185.4 cm; Wt 88.5 kg
[~2019-01-25 18:50] MED LIST: ROC1I IV; ZITHROMAX500 MG IV
[2019-01-25 19:04] VITALS: Ht 185.4 cm; Wt 88.5 kg
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
[2019-01-25 20:25] LABS: BASOPHIL % 0.5 % (0-2); PLATELET COUNT 324 x10^3mcL (130-400)
[2019-01-25 20:29] LABS: RED CELL DISTRIBUTION WIDTH 15.1 % (11.5-14.5)
[2019-01-25 20:33] LABS: CALCIUM 9.4 mg/dL (8.5-10.1); CHLORIDE SERUM 101 mmol/L (98-107); CREATININE SERUM 0.9 mg/dL (0.7-1.3); GLUCOSE SERUM 120 mg/dL (74-106); POTASSIUM SERUM 4.1 mmol/L (3.5-5.1); SODIUM SERUM 135 mmol/L (136-145)
[2019-01-25 20:38] LABS: ALKALINE PHOSPHATASE 78 U/L (46-116); ALT/SGPT 68 U/L (16-63); AST/SGOT 33 U/L (15-37); BILIRUBIN TOTAL 0.5 mg/dL (0.20-1.00); TOTAL PROTEIN, SERUM 6.4 g/dL (6.4-8.2)
[2019-01-25 20:39] LABS: ALBUMIN 2.8 g/dL (3.4-5.0)
--- NOTE | 2019-01-25 20:47 | NUR ---
PROVIDED PATIENT WITH SOMETHING TO EAT, DRINK AND WARM BLANKETS. PATIENT BREATHING E/U -- NO OTHER SS OF DISTRESS NOTED.
--- NOTE | 2019-01-25 21:00 | NUR ---
ADVISED DR MALDONADO OF PATIENTS VITAL SIGNS- ATIVAN WAS ORDERED.
[2019-01-25 21:06] LABS: microscopic required? NO
[2019-01-25 21:10] LABS: urine erythrocyte NEGATIVE (NEGATIVE)
--- NOTE | 2019-01-25 21:22 | NUR ---
MEDICATED PER MD ORDERS- WILL CONTINUE TO MONITOR PATIENT.
--- NOTE | 2019-01-25 22:17 | NUR ---
PATIENT SLEEPING ON GURNEY- EASILY AROUSABLE. NO SS OF DISTRESS NOTED. WILL CONTINUE OT MONITOR.
--- NOTE | 2019-01-25 23:49 | NUR ---
PROVIDED REPORT TO ARIELLE HANSEN -[facility] FOR CONTINUED CARE OF PATIENT.
--- NOTE | 2019-01-25 23:59 | NUR ---
RECEIVED PT VIA MARIAM FROM E/D, ACCOMPANIED BY RN AND TRANSPORTER. PT A/A/O X 1 (PERSON ONLY), ANXIOUS AMB AGITATION AND RESTLESSNESS (KEEPS ON ASKING FOR HIS MISSING CLOTHES), SLURRED SPEECH, SEIZURE PRECAUTIONS IN PLACE. GENERALIZED WEAKNESS, AMBULATORY W/ ASSISTANCE, UNSTEADY GAIT/BALANCE, FALL RISK PROTOCOL IN PLACE. ON TELE # 29, HR 116, ST, DENIES CHEST PAIN OR DISCOMFORT AT THIS TIME. NO ACUTE RESPIRATORY DISTRESS NOTED. NOTED LEFT BUTTOCKS SCAB, SAMANTHA. IV SITE LW 22G, CDI. UNABLE TO PARTICIPATE IN ANY TEACHING OPPORTUNITIES. WILL ENDORSE TO ARIELLE HANSEN.
[2019-01-26 00:46] VITALS: BP 143/110
[2019-01-26 00:55] LABS: CHOLESTEROL/HDL RATIO 3.5; MAGNESIUM 1.8 mg/dL (1.8-2.4); PHOSPHOROUS 3.5 mg/dL (2.5-4.9)
[2019-01-26 01:07] LABS: FREE T4 1.21 ng/dL (0.76-1.46); FREE THYROXINE INDEX 3.2 ug/dL (1.4-4.5); T4(THYROXINE) 8.2 ug/dL (4.7-13.3)
[2019-01-26 01:13] LABS: T3 TOTAL 1.21 ng/mL
[2019-01-26 02:33] LABS: AMPHETAMINE QUAL UR NONE DETECTED (See below)
[2019-01-26 05:58] VITALS: BP 131/95
[2019-01-26 06:32] LABS: CALCIUM 9.3 mg/dL (8.5-10.1); CARBON DIOXIDE 24.5 mmol/L (21-32); CHLORIDE SERUM 106 mmol/L (98-107); CREATININE SERUM 0.9 mg/dL (0.7-1.3); GLUCOSE SERUM 121 mg/dL (74-106); MAGNESIUM 1.9 mg/dL (1.8-2.4); PHOSPHOROUS 3.3 mg/dL (2.5-4.9); POTASSIUM SERUM 3.8 mmol/L (3.5-5.1); SODIUM SERUM 140 mmol/L (136-145)
[2019-01-26 06:34] LABS: BASOPHIL % 0.5 % (0-2); PLATELET COUNT 324 x10^3mcL (130-400)
[2019-01-26 06:38] LABS: RED CELL DISTRIBUTION WIDTH 15.4 % (11.5-14.5)
--- NOTE | 2019-01-26 07:30 | NUR ---
PT RESTED AT INTERVALS THROUGHOUT SHIFT. NO SOB ON ROOM AIR. EPISODES OF CONFUSION. NO C/O PAIN. SAFETY MEASURES MAINTAINED. CALL LIGHT WITHIN REACH. ENDORSED CONTINUITY OF CARE TO DAY SHIFT RN.
--- NOTE | 2019-01-26 08:00 | NUR ---
ALERT WITH FORGETFULNESS. SLIGHTLY AGGITATED. BREATHING FREELY ON RA. UNSTEADY ON FEET. GENERALIZED WEAKNESS. SL TO LEFT HAND. ROOM NEAR NURSES STATION. TELE # 29 SR-ST. NO CHEST PAIN. BED IN LOW POSITION, CALL LIGHT WITHIN REACH. BED ALARM ON. PUREE DIET.
--- NOTE | 2019-01-26 08:30 | NUR ---
ADMIN ATIVAN 1 MG IV PT WAS GETTING VERY RESTLESS. CHANGED INTO STREET CLOTHES. WANTED TO GET UP AND WANDER AROUND. WANTING TO GO DOWN TO LOBBY AND SIT. PT IS UNSTEADY AND CONFUSED. ENOURAGED PT TO STAY IN HIS HOSPITAL GOWN AND STAY EITHER IN BED OR CHAIR OUTSIDE ROOM. UNCOOPERATAIVE. SL TO LEFT HAND.
[2019-01-26 08:33] VITALS: BP 167/116
--- NOTE | 2019-01-26 08:48 | NUR ---
PT SLEEPING AT THIS TIME IN BED.
[2019-01-26 12:26] VITALS: BP 166/108
[2019-01-26 16:31] VITALS: BP 153/102
--- NOTE | 2019-01-26 19:10 | NUR ---
RESTING QUIETLY BREATHING FREELY ON RA. CONTINUES ON ATIVAN AND LIBRIUM. PT SLEEPS OFF AND ON. IV TO LEFT WRIST. IV HL'D SO PT WILL NOT PULL IT OUT. GOOD PO FLUID IN TAKE. UNSTEADY ON FEET. USES URINAL. BED IN LOW POSITION, SR PADDED FOR ETOH ABUSE POSS SZ. HOB ELEVATED. CALL LIGHT WITHIN REACH. BED ALARM ON.
--- NOTE | 2019-01-26 20:06 | NUR ---
PATIENT RECEIVED AWAKE, ALERT, ORIENTED TO SELF ONLY IN BED. REQUESTING FOR COFFEE. RESPIRATION EVEN AND UNLABORED, ON ROOM AIR. IV SITE TO LEFT WRIST PATENT AND INTACT. NO GI COMPLAINTS NOTED AT THIS TIME, ON PUREE DIET. VOIDING FREELY WITHOUT DIFFICULTY, USES URINAL. GENERALIZED WEAKNESS, UNSTEADY GAIT. ECCHYMOSIS TO FADY. DENIES PAIN AT THIS TIME. ON TELE #29. WILL CONTINUE TO MONITOR.
[2019-01-26 21:29] VITALS: BP 171/88
--- NOTE | 2019-01-26 21:32 | NUR ---
PATIENT RESTLESS, EPISODES OF AGITATION, NEEDS FREQUENT REDIRECTION. ATIVAN 1 MG IVP GIVEN ORDERED. WILL CONTINUE TO MONITOR.
--- NOTE | 2019-01-27 02:23 | NUR ---
PATIENT NOT SLEEPING, EPISODES OF RESTLESSNESS. ATIVAN 1 MG IVP GIVEN ORDERED. WILL CONTINUE TO MONITOR.
--- NOTE | 2019-01-27 03:13 | NUR ---
PATIENT COMPLAINED OF THROBBING HEADACHE, 8/. MEDICATED WITH TYLENOL 650 MG PO ORDERED. WILL CONTINUE TO MONITOR.
[2019-01-27 05:33] VITALS: BP 169/97
--- NOTE | 2019-01-27 06:17 | NUR ---
PT SLEEPING ON AND OFF. PT RECEIVED ATIVAN 1MG PO X1 IN THE AM DUE TO EPISODES OF RESTLESSNES. PT BREATHING WAS EVEN AND UNLABORED. NO SIGNS OF RESP DISTRESS. PT IS ON TELE #[address] PT IV ON LW PATENT AND INTACT. PT HAS EPISDES OF CONFUSION AND RESTLESSNESS. ONE TO ONE SITTER AT THE BEDSIDE FOR SAFETY.
[2019-01-27 06:34] LABS: BASOPHIL % 0.3 % (0-2); PLATELET COUNT 310 x10^3mcL (130-400)
[2019-01-27 06:48] LABS: CALCIUM 9.6 mg/dL (8.5-10.1); CARBON DIOXIDE 22.9 mmol/L (21-32); CHLORIDE SERUM 103 mmol/L (98-107); CREATININE SERUM 0.8 mg/dL (0.7-1.3); GLUCOSE SERUM 107 mg/dL (74-106); POTASSIUM SERUM 3.9 mmol/L (3.5-5.1); SODIUM SERUM 137 mmol/L (136-145)
--- NOTE | 2019-01-27 07:40 | NUR ---
ALERT AND ORIENTED X 2, LESS FORGETFUL THAN YESTERDAY. BREATHING FREELY ON RA. NO C/O PAIN OR ACTING OUT AT THIS TIME. CALMER THAN YESTERDAY. SL TO LEFT FA. CONTINUES TO HAVE GENERALIZED WEAKNESS AND GETS OUT OF BED [place]. FALL RISK. ROOM NEAR NURSES STATION. BED IN LOW POSITION WITH HOB ELEVATED FOR BREAKFAST. CALL LIGHT WITHIN REACH.
[2019-01-27 08:01] VITALS: BP 166/114
[2019-01-27 09:59] VITALS: BP 182/115
[2019-01-27 14:07] VITALS: BP 166/105
--- NOTE | 2019-01-27 19:45 | NUR ---
AOX3. TELE #29, ST, HR 100. LUNGS CONGESTED ON RA. PRODUCTIVE COUGH. PULSES PALPABLE. NO EDEMA. BOWEL SOUNDS ACTIVE. VOIDS FREELY. ECCHYMOSIS TO FADY, DRY SCAB TO L BUTTOCK. DENIES PAIN. IV TO LFA, PATENT. PT REFUSING IVF. SITTER AT BEDSIDE. BED IN LOWEST POSITION, 2 SIDE RAILS UP, CALL LIGHT IN REACH. INSTRUCTED TO CALL FOR ASSISTANCE.
--- NOTE | 2019-01-28 02:05 | NUR ---
RESTING IN BED WITH EYES CLOSED. BREATHING E/U. NO ACUTE DISTRESS NOTED. SITTER AT BEDSIDE. WILL CONTINUE TO MONITOR.
[2019-01-28 05:41] LABS: BASOPHIL % 0.5 % (0-2); PLATELET COUNT 333 x10^3mcL (130-400); RED CELL DISTRIBUTION WIDTH 14.8 % (11.5-14.5)
[2019-01-28 05:46] VITALS: BP 183/95
[2019-01-28 05:51] LABS: CALCIUM 9.9 mg/dL (8.5-10.1); CARBON DIOXIDE 23.5 mmol/L (21-32); CHLORIDE SERUM 99 mmol/L (98-107); CREATININE SERUM 0.8 mg/dL (0.7-1.3); GLUCOSE SERUM 101 mg/dL (74-106); POTASSIUM SERUM 4.2 mmol/L (3.5-5.1); SODIUM SERUM 133 mmol/L (136-145)
--- NOTE | 2019-01-28 05:54 | NUR ---
PT CALM AND COOPERATIVE OVERNIGHT. NO S/S ETOH WITHDRAWAL EVIDENT. SITTER AT BEDSIDE. WILL ENDORSE TO ONCOMING RN.
--- NOTE | 2019-01-28 07:50 | NUR ---
PATIENT IS SITTING UP AND BED, GETTING READY TO LEAVE. PATIENT STATES HE WANTS TO GO HOME. EDUCATED PATIENT ON THE RISK OF LEAVING, PATIENT STATES HES FINE AND ABLE TO LEAVE. PATIENT IS A/OX3, DENIES SOB, PATIENT ON ROOM AIR. NO ACUTE DISTRESS NOTED. GENERALIZED WEAKNESS NOTED, FALL RISK IN PLACE. IV TO LFA SALINE LOCK, PATIENT REFUSED FLUIDS. CALL LIGHT WITHIN REACH, BED IN LOW POSITION. WILL CONTINUE TO MONITOR AND ATTEMPT TO CONTINUE TO EDUCATE PATIENT ABOUT RISK OF LEAVING.
--- NOTE | 2019-01-28 08:25 | NUR ---
PATIENT IS DRESSED AND READY TO LEAVE, PATIENT STATES HE IS FINE TO LEAVE AND IS ABLE TO WALK. PATIENT WAS EXPLAINED THE RISK OF LEAVING. PATIENT SIGN AMA FORM, WAREHOUSE LOGISTICS MANAGER VERONICA & DRILL GRINDER DAMIR AWARE. PATIENT IV TO LFA REMOVED, CATH INTACT. TELE MONITOR & ARMBAND REMOVED. PATIENT WAS TAKEN DOWN BY STRAIGHTENING MACHINE OPERATOR.
== END 2019-01-28 08:29 | disposition left against medical advice (07) | DRG 91 ==
LOC: ED 18:50 → DU 23:17
PROVIDERS: Emergency Medicine; ADMIT General Practice
DX: G92 Toxic encephalopathy (principal); E43 Unspecified severe protein-calorie malnutrition; F10.239 Alcohol dependence with withdrawal, unspecified; F11.20 Opioid dependence, uncomplicated; F33.2 Major depressive disorder, recurrent severe without psychotic features; E86.0 Dehydration; Y90.0 Blood alcohol level of less than 20 mg/100 ml; Z68.25 Body mass index [BMI] 25.0-25.9, adult
CPT/HCPCS: 84439; G0378; G0480; J0360; J1630; J2060; J7030

== ENCOUNTER 2019-10-08 18:01 | Emergency (ER) | payer OTHER, MEDICAID ==
[~2019-10-08] VITALS: Ht 177.8 cm; Wt 81.6 kg
[2019-10-08 18:21] VITALS: Ht 177.8 cm; Wt 81.6 kg
[2019-10-08 19:22] LABS: BASOPHIL % 0.4 % (0-2); PLATELET COUNT 387 x10^3mcL (130-400)
[2019-10-08 19:51] LABS: ALKALINE PHOSPHATASE 144 U/L (46-116); ALT/SGPT 27 U/L (16-63); AST/SGOT 36 U/L (15-37); BILIRUBIN TOTAL 0.24 mg/dL (0.20-1.00); CALCIUM 8.7 mg/dL (8.5-10.1); CARBON DIOXIDE 22.3 mmol/L (21-32); CHLORIDE SERUM 92 mmol/L (98-107); GLUCOSE SERUM 64 mg/dL (74-106); POTASSIUM SERUM 4.4 mmol/L (3.5-5.1)
[2019-10-08 19:59] LABS: AMPHETAMINE QUAL UR NONE DETECTED (See below)
[2019-10-08 20:05] LABS: CREATININE SERUM 0.8 mg/dL (0.7-1.3)
[2019-10-08 20:07] LABS: ALBUMIN 2.7 g/dL (3.4-5.0); SODIUM SERUM 123 mmol/L (136-145); TOTAL PROTEIN, SERUM 8.6 g/dL (6.4-8.2)
[2019-10-09 08:20] VITALS: BP 129/75
== END 2019-10-09 08:20 | disposition home or self-care (01) ==
LOC: ED 18:01
PROVIDERS: Emergency Medicine
DX: F10.129 Alcohol abuse with intoxication, unspecified (principal); E87.1 Hypo-osmolality and hyponatremia; E16.2 Hypoglycemia, unspecified; F11.10 Opioid abuse, uncomplicated; Z98.890 Other specified postprocedural states; Y90.6 Blood alcohol level of 120-199 mg/100 ml
CPT/HCPCS: 82962; G0480; J3490